=== PATIENT | female | born 1980 | race African-American/Black ===

== ENCOUNTER 2017-01-16 14:12 | Emergency (ER) | payer OTHER ==
[2017-01-16 14:15] VITALS: BP 118/63
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
[2017-01-16] MEDS ORDERED: TORADOL IM ONE (20:22)
[2017-01-16] MEDS ORDERED: FLEXERIL PO ONE (20:22)
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
== END 2017-01-16 20:46 | disposition home or self-care (01) ==
LOC: ED 14:12
DX: S39.012A Strain of muscle, fascia and tendon of lower back, initial encounter (principal); V49.59XA Passenger injured in collision with other motor vehicles in traffic accident, initial encounter; Y92.488 Other paved roadways as the place of occurrence of the external cause; Y93.89 Activity, other specified; Y99.8 Other external cause status
CPT/HCPCS: 72040; 72100; 96372; 99284; J1885